=== PATIENT | male | born 1945 | race Caucasian/White ===

== ENCOUNTER 2016-04-21 06:14 | Observation (INO) | payer MEDICARE, OTHER ==
[2016-04-18 11:42] LABS: HEMOGLOBIN 14.4 g/dL (13.6-17.8)
[2016-04-18 11:57] LABS: BUN (BLOOD UREA NITROGEN) 23 MG/DL (6-23); CHLORIDE, SERUM 107 MMOL/L (96-112); CO2 (CARBON DIOXIDE) 28 MMOL/L (24-34); CREATININE 1.14 MG/DL (0.70-1.30); GFR AFRICAN AMERICAN 75 ML/MIN (>=60); GFR NON AFRICAN AMERICAN 65 ML/MIN (>=60); GLUCOSE, SERUM 120 MG/DL (60-99); POTASSIUM, SERUM 4.2 MMOL/L (3.5-5.3); SODIUM, SERUM 142 MMOL/L (135-148)
[2016-04-18 12:00] LABS: CALCIUM, SERUM 8.8 MG/DL (8.5-10.4)
--- NOTE | ~2016-04-21 | OP ---
Record Of Operation [facility] [address] [place]. [address] NAME: SKYE CASTANON : 45 STATUS : ADM IN PAT#: [id number] AGE: 70 ADM/REG DATE : 04/21/16 MR#: [id number] REPORT SERV DATE: 04/21/16 DICTATED BY: JOSE FELIPE DATE: 04/21/16 REPORT STATUS : Draft TRANSCRIBED BY: MODL DATE: 04/21/16 DATE OF PROCEDURE: PREOPERATIVE DIAGNOSIS: Subxiphoid ventral/incisional hernia. POSTOPERATIVE DIAGNOSIS: Subxiphoid ventral/incisional hernia. PROCEDURE: Component separation technique repair of subxiphoid ventral/incisional hernia. SURGEON: Jose Felipe M.D. DESCRIPTION OF OPERATIVE PROCEDURE: The patient brought to operating suite, placed in supine position, underwent satisfactory general endotracheal anesthesia without incident. The skin of the upper abdomen was scrubbed, prepped, and draped in usual sterile fashion. 0.5% Marcaine with epinephrine was utilized as supplemental local anesthesia. The sternotomy incision had been extended into the upper abdomen was further extended towards the umbilicus and dissecting through the skin and subcutaneous tissue to the hernia sac. This hernia sac was identified and circumscribed but not violated. Next component separation technique was utilized by incising the anterior rectus sheath bilaterally and exposing the medial aspect of the rectus musculature. A retro-rectus dissection was performed bluntly and with cautery bilaterally to the full lateral extent of the rectus sheath and then superiorly to beneath the costal margins bilaterally and inferiorly toward the umbilicus. The posterior rectus sheaths were reapproximated in midline and a plication technique with multiple interrupted [id number] sutures of #1 Vicryl. Then, a Ventralex light coated patch 15 x 20 cm in size was trimmed in a "butterfly" fashion and placed on the surface of the posterior rectus sheath. It was trimmed to circumscribe the xiphoid and the midline fascia inferiorly. The mesh was plicated in position with multiple firings of the SecureStrap absorbable tacker. Then, the anterior rectus sheath with the musculature attached was closed over the mesh sandwiching it again using #1 Vicryl [id number] fashion. Following this, subcutaneous tissues irrigated and closed with interrupted 3-0 Vicryl and then a running subcuticular stitch of 4-0 Vicryl for the skin. Dermabond skin adhesive placed. The patient tolerated the procedure well was returned to PACU in stable condition. Termination procedure, sponge, needle, lap, instrument counts were correct x3. ESTIMATED BLOOD LOSS: Less than 20 mL. Record Of Operation [facility] [address] [place] [address] NAME: SKYE CASTANON : 45 STATUS : ADM IN PAT#: [id number] AGE: 70 ADM/REG DATE : 04/21/16 MR#: [id number] REPORT SERV DATE: 04/21/16 DICTATED BY: JOSE FELIPE DATE: 04/21/16 REPORT STATUS : Draft TRANSCRIBED BY: CHUCK DATE: 04/21/16 PRIMO/CHUCK Jose Felipe M.D. / [id number] CC: Jose Felipe M.D.
[~2016-04-21 06:14] MED LIST: ASAB PO; CONCERTA56 PO; CORDARONE PO; COREG6 PO; COUMADIN4 MG PO; COZ25 PO; K-TABS10 MEQ PO; L40 PO; LIPITOR40 PO; NAP500 PO; NITROQUICK0.4 MG SL; NORV5 PO; PRAVACHOL40 MG PO; SYN1 PO; WELL75 PO
[2016-04-22 06:18] LABS: BASOPHILS 0.3 %; BASOPHILS ABSOLUTE 0.02 10/3/uL (0.0-0.16); EOSINOPHILS 2.8 %; EOSINOPHILS ABSOLUTE 0.19 10/3/uL (0.0-0.53); HEMATOCRIT 30.9 % (40.0-51.0); HEMOGLOBIN 10.7 g/dL (13.6-17.8); IMMATURE GRANULOCYTES 0.1 %; IMMATURE GRANULOCYTES ABSOLUTE 0.01 10/3/uL (0.0-0.11); LYMPHOCYTES ABSOLUTE 1.63 10/3/uL (0.67-4.30); MANUAL DIFF NO %; MEAN CORPUS HGB CONC 34.6 g/dL (32.0-36.0); MEAN CORPUSCULAR HEMOGLOB 32.1 pg (26.0-34.0); MEAN CORPUSCULAR VOLUME 92.8 fL (80-100); MONOCYTES 7.9 %; MONOCYTES ABSOLUTE 0.54 10/3/uL (0.21-1.20); NEUTROPHILS 64.9 %; NEUTROPHILS ABSOLUTE 4.41 10/3/uL (2.02-8.40); PLATELET COUNT 175 10/3/uL (150-400); RBC DISTRIBUTION WIDTH 12.8 % (12.0-16.0); RED CELL COUNT 3.33 10/6/uL (4.7-6.1); WHITE BLOOD CELLS 6.8 10/3/uL (4.5-10.5)
[2016-04-22 06:34] LABS: ALBUMIN 2.9 G/DL (3.5-5.0); CALCIUM, SERUM 8.1 MG/DL (8.5-10.4); CHLORIDE, SERUM 106 MMOL/L (96-112); CO2 (CARBON DIOXIDE) 25 MMOL/L (24-34); GFR AFRICAN AMERICAN 71 ML/MIN (>=60); GFR NON AFRICAN AMERICAN 61 ML/MIN (>=60); GLOBULIN 2.8 G/DL (2.5-4.1); GLUCOSE, SERUM 139 MG/DL (60-99); POTASSIUM, SERUM 3.8 MMOL/L (3.5-5.3); SGOT(AST) 16 U/L (5-40); SGPT(ALT) 26 U/L (5-65); SODIUM, SERUM 140 MMOL/L (135-148); TOTAL PROTEIN 5.7 G/DL (6.0-8.5)
[2016-04-22 06:38] LABS: ALKALINE PHOSPHATASE 59 U/L (45-117); BUN (BLOOD UREA NITROGEN) 18 MG/DL (6-23); TOTAL BILIRUBIN 0.8 MG/DL (0-1.2)
[2016-04-22] MEDS ORDERED: TORATAB PO (10:26)
== END 2016-04-22 11:49 | disposition home or self-care (01) ==
LOC: SDC/OF 06:14 → PACU 10:07 → 5SO 12:21
PROVIDERS: Specialist
PROC: 0WUF0JZ Supplement Abdominal Wall with Synthetic Substitute, Open Approach (ICD-10-PCS; principal; 2016-04-21 07:45)
DX: K43.2 Incisional hernia without obstruction or gangrene (principal); M19.90 Unspecified osteoarthritis, unspecified site; F32.9 Major depressive disorder, single episode, unspecified; H91.90 Unspecified hearing loss, unspecified ear; E78.5 Hyperlipidemia, unspecified; I10 Essential (primary) hypertension; E03.9 Hypothyroidism, unspecified; I25.2 Old myocardial infarction; E78.00 Pure hypercholesterolemia, unspecified; I25.10 Atherosclerotic heart disease of native coronary artery without angina pectoris; G47.33 Obstructive sleep apnea (adult) (pediatric); I73.9 Peripheral vascular disease, unspecified; Z88.8 Allergy status to other drugs, medicaments and biological substances; Z88.5 Allergy status to narcotic agent; Z79.899 Other long term (current) drug therapy; Z79.82 Long term (current) use of aspirin; Z98.52 Vasectomy status; Z95.1 Presence of aortocoronary bypass graft; Z96.651 Presence of right artificial knee joint; Z98.890 Other specified postprocedural states
CPT/HCPCS: 80048; 80053; 85014; 85018; 85025; 87641; 93005; 96372; 96374; 96376; A9270-GY; C1713; C1781; G0378; J0690; J1170; J1885; J2270; J2405; J2710; J3010